=== PATIENT | female | born 1950 | race Caucasian/White ===

== ENCOUNTER 2017-04-08 18:21 | Emergency (ER) | payer MEDICARE, OTHER ==
--- NOTE | 2017-04-08 19:16 | RADIOLOGY REPORT (SQ) ---
EXAM DESCRIPTION: TOE LEFT COMPLETED DATE/TIME: 04/08/2017 7:01 pm REASON FOR STUDY: Left great toe injury, nail lifted COMPARISON: None. NUMBER OF VIEWS: Three views. TECHNIQUE: AP, lateral, and oblique images acquired of the left great toe LIMITATIONS: None. FINDINGS: MINERALIZATION: Normal. BONES: No acute fracture or dislocation. No worrisome bone lesions. Scattered degenerative changes noted in the visualize fore and midfoot. JOINTS: No effusions. SOFT TISSUES: No soft tissue swelling. No foreign body. OTHER: No other significant finding. IMPRESSION: No acute fracture or dislocation identified. Degenerative changes noted in the visualiz ed portions of the fore and midfoot. COMMENT: SITE OF TRAUMA/COMPLAINT MARKED/STAMP COMPLETED: NO. TECHNICAL DOCUMENTATION: JOB ID: [id number] [employer]- All Rights Reserved
[2017-04-08] MEDS ORDERED: LIDOCAINE 1% INJ-PF (10 MG/ML) 30 ML SDV INJ ONE (19:20)
--- NOTE | 2017-04-08 19:31 | ER Document Report ---
HPI - HPI Pain Level: 4 Notes: Patient is a 59-year-old female presents to the ED complaining of left toe injury and avulsed nail that happened just prior to arrival. Patient states that she injured herself going up stairs. She has not had any medications or symptoms. She did have bleeding initially but that has since stopped. Does not radiate. No numbness or tingling to the toe. Patient allergic to penicillins she has hives from those. Otherwise she takes medication for hypertension and hypercholesterolemia. Denies any diabetic history. Denies any headache, fever, chest pain, palpitations, syncope, cough, wheeze, shortness of breath, abdominal pain, nausea/vomiting, muscle weakness/paralysis , rash. - ROS Notes: REVIEW OF SYSTEMS: CONSTITUTIONAL : Denies fever, chills, or sweats. Denies recent illness. CARDIOVASCULAR: Denies chest pain. Denies palpitations or racing or irregular heart beat. Denies ankle edema. RESPIRATORY: Denies cough, cold, or chest congestion. Denies shortness of breath, difficulty breathing, or wheezing. GASTROINTESTINAL: Denies abdominal pain or distention. Denies nausea, vomiting , or diarrhea. Denies blood in vomitus, stools, or per rectum. Denies black, tarry stools. Denies constipation. MUSCULOSKELETAL: see hpi SKIN: Denies rash, lesions or sores. NEUROLOGICAL: see hpi ALL OTHER SYSTEMS REVIEWED AND NEGATIVE. Dictation was performed using [employer] voice recognition software - CARDIOVASCULAR Cardiovascular: DENIES: Chest pain - DERM Skin Color: Normal Past Medical History - Social History Smoking Status: Never Smoker Chew tobacco use (# tins/day): No Frequency of alcohol use: Occasional Drug Abuse: None Family History: Reviewed & Not Pertinent Patient has suicidal ideation: No Patient has homicidal ideation: No - Past Medical History Cardiac Medical History: Reports: Hx Hypercholesterolemia, Hx Hypertension Renal/ Medical History: Denies: Hx Peritoneal Dialysis Past Surgical History: Reports: Hx Appendectomy, Hx Genitourinary Surgery - bladder repair 07/22, Hx Gynecologic Surgery - 07/22 Vertical Provider Document - CONSTITUTIONAL Notes: PHYSICAL EXAMINATION: GENERAL: Well-appearing, well-nourished and in no acute distress. LUNGS: Breath sounds clear to auscultation bilaterally and equal. No wheezes rales or rhonchi. HEART: Regular rate and rhythm without murmurs, rubs, gallops. Musculoskeletal: + avulsed nail to the nail to the cuticle. No damage to the nail bed. No purulent discharge. + mild onychomycosis. FROM to passive/ active. Strength 5+/5. N/V intact to the great toe and left foot. Pulses 2+. sensation intact. Extremities: No cyanosis, clubbing, or edema b/l. Peripheral pulses 2+. Capillary refill less than 3 seconds. NEUROLOGICAL: Cranial nerves grossly intact. Normal speech, normal gait. Normal sensory, motor exams PSYCH: Normal mood, normal affect. SKIN: Warm, Dry, normal turgor, no rashes or lesions noted. - INFECTION CONTROL TRAVEL OUTSIDE OF THE [place] IN LAST 30 DAYS: No - RESPIRATORY O2 Sat by Pulse Oximetry: 99 Course - Re-evaluation Re-evalutation: 04/08/17 20:31 Patient is afebrile, well-hydrated, 67-year-old female presents to the ED with a nail avulsion to her left great toe. XR negative for acute fracture/ dislocation. Vitals are stable. PE otherwise unremarkable. She has no immunocompromised condition. Nail was removed successfully without complication ; although, the fungal infection did make cutting a little difficult, today. Left enough nail to separate the cuticle from overlapping the nail preventing re -growth. Iodoform wrapped to the nail bed to help against infection. I will give her Keflex 500mg PO BID x3 days as prophylactic. Pt had rash with PCN, allergic reaction cross-reactivity reviewed with the patient. Risks/benefits understood. Recheck with her PCM/Podiatry in 2-3 days. Conservative measures for symptoms otherwise. Return to the ED with any concerning/worsening symptoms otherwise as reviewed. Pt in agreement. - Vital Signs Vital signs: Temp Pulse Resp BP Pulse Ox 97.8 F 72 18 172/86 H 99 04/08/17 18:25 04/08/17 18:25 04/08/17 18:25 04/08/17 18:25 04/08/17 18:25 Discharge - Discharge Clinical Impression: Toenail avulsion Qualifiers: Encounter type: initial encounter Qualified Code(s): S91.209A - Unspecified open wound of unspecified toe(s) with damage to nail, initial encounter Condition: Stable Disposition: HOME, SELF-CARE Additional Instructions: Keep the toe clean Avoid showering x24 hours, then may shower but no submersion under water until wound heals Daily dressing changes therafter for 2-3 days. May leave open to air if no drainage Tylenol/ibuprofen as needed Ice may help along with elevation Light stretching as able Recheck with your PCM/Podiatry in 2-3 days Return to the ED with any worsening symptoms and/or development of fever, headache, chest pain, palpitations, syncope, shortness of breath, trouble breathing, abdominal pain, n/v/d, blood in stool/urine, urinary retention, muscle weakness/paralysis, abscess, purulent discharge, red streaks, or other worsening symptoms that are concerning to you. Prescriptions: Cephalexin Monohydrate [Keflex 500 mg Capsule] 500 mg PO BID #20 capsule Forms: Elevated Blood Pressure Referrals: PODIATRY [Provider Group] - Follow up as needed [facility] DPM [ACTIVE STAFF] - Follow up as needed
[2017-04-08 21:45] VITALS: BP 154/82
== END 2017-04-08 21:10 | disposition home or self-care (01) ==
LOC: ER 18:21
PROC: 0HBRXZZ Excision of Toe Nail, External Approach (ICD-10-PCS; principal; 2017-04-08)
DX: S91.212A Laceration without foreign body of left great toe with damage to nail, initial encounter (principal); X58.XXXA Exposure to other specified factors, initial encounter; I10 Essential (primary) hypertension; E78.00 Pure hypercholesterolemia, unspecified; Z88.0 Allergy status to penicillin
CPT/HCPCS: 99283